=== PATIENT | female | born 1965 | race Two or more races ===

== ENCOUNTER 2024-04-22 23:35 | Emergency (ER) | payer MEDICAID, OTHER ==
[~2024-04-22] VITALS: Ht 157.5 cm; Wt 68.0 kg
[2024-04-23 00:01] LABS: BASOPHILS % (AUTO) 0.7 % (0.0-2.0); EOSINOPHILS # (AUTO) 0.1 K/uL (0.0-0.7); EOSINOPHILS % (AUTO) 1.1 % (0.0-6.0); HEMATOCRIT 37 % (33-45); HEMOGLOBIN 12.4 g/dL (11.5-14.8); LYMPHOCYTES # (AUTO) 1.7 K/uL (0.8-4.8); LYMPHOCYTES % (AUTO) 26.3 % (20.0-44.0); MEAN CORPUSCULAR HEMOGLOBIN 30 PG (26.0-33.0); MEAN CORPUSCULAR HGB CONC 34 g/dl (31.0-36.0); MEAN CORPUSCULAR VOLUME 88 fL (82-100); MONOCYTES # (AUTO) 0.6 K/uL (0.1-1.30); MONOCYTES % (AUTO) 8.9 % (2.0-12.0); NEUTROPHILS # (AUTO) 4.1 K/uL (1.8-8.9); PLATELET COUNT (AUTO) 240 K/uL (150-450); RED BLOOD CELL COUNT(AUTO) 4.19 MIL/uL (4.0-5.2); RED CELL DISTRIBUTION WIDTH 13.4 % (11.5-15.0); WHITE BLOOD COUNT (AUTO) 6.4 K/uL (4.3-11.0)
[2024-04-23 00:09] LABS: CALCIUM, SERUM 9.2 mg/dL (8.5-10.1); CARBON DIOXIDE 28 mmol/L (21-32); CHLORIDE 109 mmol/L (98-107); CREATININE 0.9 mg/dL (0.6-1.3); GLUCOSE 151 mg/dL (74-106); POTASSIUM 3.6 mmol/L (3.5-5.1); SODIUM SERUM 144 mmol/L (136-145); UREA NITROGEN, BLOOD 25 mg/dL (7-18)
[2024-04-23 00:22] LABS: NT-PRO BNP 31 pg/mL (0-125)
[2024-04-23 00:23] LABS: THYROID STIMULATING HORMONE 2.47 uIU/mL (0.358-3.74)
[2024-04-23] MEDS: IV NS 0.9% 1,000 ML BAG IV ONE (01:00)
[2024-04-23 03:10] VITALS: BP 112/83; O2SAT 99
== END 2024-04-23 03:10 | disposition left against medical advice (07) ==
LOC: ER 23:37
DX: I47.10 Supraventricular tachycardia, unspecified (principal); E11.9 Type 2 diabetes mellitus without complications
CPT/HCPCS: 99285; 71045; 93005; 85025; 80048; 83735; 36415 ×2; 84439; 84443; 84484 ×2; 83880; 96360; J7030